=== PATIENT | female | born 1950 ===

== ENCOUNTER → 2023-09-10 08:01 | Outpatient (REF) | payer MEDICARE, OTHER, SELFPAY | LOC: RAD 08:01 | PROVIDERS: ATTENDING PHYSICIAN Specialist; FAMILY PHYSICIAN Internal Medicine | DX: M25.512 Pain in left shoulder (principal) | CPT/HCPCS: 73200 ==

== ENCOUNTER 2023-10-25 06:46 | Day surgery (SDC) | payer MEDICARE, OTHER, SELFPAY ==
--- NOTE | 2023-09-30 09:30 | CM ---
Patient is scheduled for an elective L Reverse TSA, removal of proximal humerus plate on 10/25/23- she is a same day patient. Spoke with patient's daughter, Lena, prior to surgery. Introduced role of Orthopedic Navigator. She reports that patient
lives on the first floor of a duplex and she and her son live on the second floor. Patient's home is one floor; one step to enter and then 10 steps to all living areas. Currently she functions independently. She does not use any DME and has never
had VN services. PCP is Dr. Maciej Ba.
Discussed orthopedic program and post surgical plans. Patient will return home when directed by surgeon. Reviewed MD follow up and transition to outpatient therapy. She is in agreement with tentative plan and states that she will be home with
patient and can assist if needed.
Patient will complete online education.
Plan: Orthopedic Navigator will be involved in the care of patient after surgery and will reassess discharge needs at that time.
[2023-10-10 13:53] LABS: Hematocrit 32.3 % (37.0-47.0); Hemoglobin 10.5 g/dL (12.0-16.0); Mean Corp Hgb Conc. 32.5 g/dL (33.0-37.0); Mean Corpuscular Hgb 27.1 pg (27.0-31.0); Mean Corpuscular Volume 83.2 fL (81.0-99.0); Mean Platelet Volume 9.9 fL (7.4-10.4); Platelet Count 243 10^3/uL (130-400); Red Blood Cell Count 3.88 10^6/uL (4.20-5.40); Red Cell Dist. Width 14.5 % (11.5-14.5); White Blood Cell Count 7.5 10^3/uL (4.8-10.8)
[2023-10-10 14:24] LABS: ALT (SGPT) 30 U/L (0-35); AST (SGOT) 33 U/L (14-36); Albumin 4.1 g/dl (3.5-5.0); Alkaline Phosphatase 74 U/L (38-126); Blood Urea Nitrogen 27 mg/dl (7-17); Calcium 10.3 mg/dl (8.4-10.2); Carbon Dioxide 24 mmol/L (22-30); Chloride 103 mmol/L (98-107); Estimated Creatinine Clearance 44 ml/min; Glucose 115 mg/dl (70-99); Potassium 4.4 mmol/L (3.5-5.1); Sodium 135 mmol/L (135-145); Total Bilirubin 0.4 mg/dl (0.2-1.3); Total Protein 7.2 g/dl (6.3-8.2); eGFR 48.09
[2023-10-10 14:35] LABS: Glycohemoglobin (HgbA1c) 7.4 % (4.0-5.6)
[2023-10-25 10:15] LABS: Glucose - Point of Care 75 mg/dl (70-99)
[2023-10-25] MEDS: TYLENOL 1000 MG PO (10:49)
[2023-10-25] MEDS: CELEBREX 200 MG PO (10:50)
[2023-10-25] MEDS: NORMOSOL-R 1000 IV (10:50)
[2023-10-25] MEDS: BACTROBAN NASAL 1 GRAM NASAL (10:53)
--- NOTE | 2023-10-25 11:11 | W.DS.TRANS ---
DC Summary - [employer]
-
Discharge Instructions:
Sleep Apnea Risk Intermediate
Discharge Diagnosis/Procedures L Reverse TSA Dr. Camacho 10/25/23
Diet Diabetic, Carb Controlled
Driving Restrictions No driving
Instructions:
Stand-Alone Forms: SDS Total Shoulder D/C Inst.
Changes to Home Medications: Yes
Discharge Medications:
DC Medications w/original date entered in [employer]
apjfarq-hjotscqnxfejv-xgnrfonu 250 mg-250 mg-65 mg tablet (Excedrin Extra Strength) 2 tab PO PRN PRN headache 10/03/23
cyclosporine 0.05 % eye drops in a dropperette (Restasis) 1 drp BOTH EYES Q12H 10/03/23
ergocalciferol (vitamin D2) 50,000 unit tablet 50,000 unit PO .2XMONTH 10/03/23
famotidine 20 mg tablet 20 mg PO BID 10/03/23
glimepiride 4 mg tablet 4 mg PO BID 10/03/23
hydroxychloroquine 200 mg tablet 200 mg PO BID 10/03/23
insulin glargine U-300 conc 300 unit/mL (1.5 mL) subcutaneous pen (Toujeo SoloStar U-300 Insulin) 17 unit SC HS 10/03/23
metformin 500 mg tablet 500 mg PO BID 10/03/23
omeprazole 20 mg tablet,delayed release 20 mg PO BID 10/03/23
simvastatin 10 mg tablet 10 mg PO QPM 10/03/23
sitagliptin phosphate 100 mg tablet (Januvia) 100 mg PO DAILY 10/03/23
valsartan 160 mg-hydrochlorothiazide 25 mg tablet 1 tab PO DAILY 10/03/23
doxycycline hyclate 100 mg capsule 100 mg PO BID infection prevention #10 caps 10/10/23
gabapentin 300 mg capsule 300 mg PO HS sleep/pain #10 caps 10/10/23
mupirocin 2 % topical ointment 1 applic topical BID infection prevention #1 tube 10/10/23
oxycodone 5 mg tablet 5 mg PO Q6H PRN 1 tab moderate pain, 2 tabs severe pain #30 tabs 10/10/23
acetaminophen 325 mg capsule (Tylenol) 650 mg (2 x 325 mg) PO QID #2 caps 10/25/23
aspirin 325 mg tablet 325 mg PO DAILY blood clot prevention #1 tab 10/25/23
docusate sodium 100 mg capsule (Colace) 100 mg PO BID stool softner #1 cap 10/25/23
magnesium hydroxide 400 mg/5 mL oral suspension (Milk of Magnesia) 30 ml PO HS PRN Constipation #1 mL 10/25/23
sennosides 8.6 mg tablet (Senokot) 17.2 mg (2 x 8.6 mg) PO BID laxative #2 tabs 10/25/23
Home Medication Changes
doxycycline hyclate 100 mg capsule 100 mg PO BID infection prevention #10 caps 10/10/23�
gabapentin 300 mg capsule 300 mg PO HS sleep/pain #10 caps 10/10/23�
oxycodone 5 mg tablet 5 mg PO Q6H PRN 1 tab moderate pain, 2 tabs severe pain #30 tabs 10/10/23�
Pending Results: No
[2023-10-25 12:18] LABS: Glucose - Point of Care 97 mg/dl (70-99)
[2023-10-25 15:38] LABS: Glucose - Point of Care 142 mg/dl (70-99)
[2023-10-25] MEDS: ANCEF 5 IV (17:27)
== END 2023-10-25 18:00 | disposition home or self-care (01) ==
LOC: SDS 06:46
PROVIDERS: ATTENDING PHYSICIAN Specialist; FAMILY PHYSICIAN Internal Medicine; OTHER PHYSICIAN Physician Assistant Medical
DX: M19.112 Post-traumatic osteoarthritis, left shoulder (principal); S42.202S Unspecified fracture of upper end of left humerus, sequela; T84.84XA Pain due to internal orthopedic prosthetic devices, implants and grafts, initial encounter; Y83.1 Surgical operation with implant of artificial internal device as the cause of abnormal reaction of the patient, or of later complication, without mention of misadventure at the time of the procedure
CPT/HCPCS: 23472; 20680; C1776; 73020; 80053; 82962; 83036; 85027; 86850; 86900; 86901; 87070